=== PATIENT | male | born 2005 | race Caucasian/White ===

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

== ENCOUNTER 2025-01-12 09:32 | Emergency (ER) | payer OTHER, SELFPAY ==
[2025-01-12 09:38] VITALS: BP 129/77
[2025-01-12] MEDS: MOTRIN 600 MG TUBE (09:45)
[2025-01-12] MEDS: NSS 1000 IV ×2 (10:34→12:24)
[2025-01-12] MEDS: DECADRON 10 MG IV (10:34)
--- NOTE | 2025-01-12 10:35 | ED.GENMED ---
History of Present Illness
General
Chief Complaint: Fever
Source: patient and family (mom at bedside)
Exam Limitations: none
Time Seen by Provider: 01/12/25 10:12
Nursing documentation reviewed up to this point in time: agreed with
History of Present Illness
History of Present Illness:
The patient is a 19-year-old male presenting with a sore throat that began 3 days ago. The patient is currently on day three of a course of Azithromycin (Z-pack) prescribed by Dr. Patterson three days ago. Despite this treatment, the patient continues
to experience symptoms. The patient reports ear discomfort, described as feeling 'clogged,' and dizziness, but denies nausea, vomiting, or diarrhea. He has swollen lymph nodes. A throat culture was not performed prior to this visit.
Temp 101.9 Ibuprofen given in Triage
Past History
Past History
ED Past Medical History: None
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
Social History
Tobacco: Non-smoker
Alcohol: None
Personal: Single
Living: with family
Employment: Employed
Review of Systems
Review of Systems
Allergies reviewed?: Yes
All Other Systems: ROS reviewed and negative except as documented in HPI and ROS
Constitutional: Reports fever
EENT: Reports sore throat (Significant lymphadenopathy)
ABD/GI: Denies abdominal pain, nausea, vomiting or diarrhea
Musculoskeletal: Denies joint pain
Skin: Reports no symptoms
Neurological: Reports dizzy; Denies headache
Phy Exam
Physical Exam
Physical Exam:
GENERAL: No acute distress. A&Ox3.
CONSTITUTIONAL: Afebrile.
EYES: clear, conjunctivae normal
Neck: Significant bilateral post auricular, cervical lymphadenopathy
ENMT: moist mucus membranes, Pharynx with significantly swollen (not touching), red tonsils with mild exudate, able to swallow with mild difficulty, some gagging, and hot potato voice. TMs normal
RESPIRATORY: Regular respirations, nonlabored, lungs clear.
CARDIOVASCULAR: Regular rate and rhythm, no murmurs, no rubs.
GI: Soft, nontender, normal BS
MUSCULOSKELETAL: Moves with ease. Well perfused.
SKIN: Warm, dry, pink
PSYCH: Normal mood and affect. Well kept, interactive and appropriate
NEUROLOGIC: Awake, alert and oriented. No focal neurological deficits
Course
Orders/Labs/Results
Orders:
Orders
01/12/25 09:40
Ibuprofen [Motrin] 600 mg .ROUTE .STK-MED ONE
01/12/25 09:44
Ibuprofen [Motrin] 600 mg TUBE NOW STA
01/12/25 10:18
0.9% Sodium Chloride 1000 ml [Nss] 1,000 ml IV BOLUS
Dexamethasone Sod Phosphate [Decadron] 10 mg IV NOW STA
01/12/25 10:22
Complete Blood Count/With Diff Urgent
Comprehensive Metabolic Panel Urgent
Monotest Urgent
01/12/25 12:09
Rapid Strep Group A Urgent
SHAWN Source: Throat/Pharynx
Specimen Description:
Date Specimen was Collected: 01/12/25
Time Specimen was Collected: 12:08
Throat Culture [Throat Culture, Comprehensive] Urgent
SHAWN Source: Throat/Pharynx
Specimen Description:
Date Specimen was Collected: 01/12/25
Time Specimen was Collected: 12:08
01/12/25 12:19
0.9% Sodium Chloride 1000 ml [Nss] 1,000 ml IV BOLUS
Abnormal Lab Results
01/12/25
10:22
WBC 14.3 H 10^3/uL
(4.8-10.8)
Absolute Lymphs (auto) 9.8 H 10^3/uL
(1.2-3.4)
Neutrophils % 26.3 L %
(42.2-75.2)
Lymphocytes % 68.6 H %
(20.5-51.1)
Glucose 132 H mg/dl
(70-99)
AST 127 H U/L
(17-59)
ALT 169 H U/L
(0-50)
Alkaline Phosphatase 141 H U/L
(38-126)
Monoscreen Positive A
(Negative)
01/12/25 10:22
01/12/25 10:22
Vital Signs
Initial and Last Documented VS:
Initial Vital Signs
Temp Pulse Resp BP Pulse Ox
101.7 F H 108 16 129/77 98
01/12/25 09:38 01/12/25 09:38 01/12/25 09:38 01/12/25 09:38 01/12/25 09:38
Last Documented Vital Signs
Temp Pulse Resp BP Pulse Ox
99.7 F 88 16 129/77 98
01/12/25 13:13 01/12/25 13:13 01/12/25 09:38 01/12/25 09:38 01/12/25 10:43
MDM/Problems Addressed
Differential Diagnosis Includes:
Viral versus bacterial pharyngitis, infectious mono, peritonsillar abscess, tonsillitis
MDM/Problems Addressed:
The patient is a 19-year-old male presenting with a sore throat that began 3 days ago. The patient is currently on day three of a course of Azithromycin (Z-pack) prescribed by Dr. Patterson three days ago. Despite this treatment, the patient continues
to experience symptoms. The patient reports ear discomfort, described as feeling 'clogged,' and dizziness, but denies nausea, vomiting, or diarrhea. He has swollen lymph nodes. A throat culture was not performed prior to this visit.
Temp 101.9 Ibuprofen given in Triage
No visible or palpable abscess.
Plan:
- Perform a throat culture.
- Test for infectious mononucleosis with a blood test.
- Administer intravenous fluids.
- Administer a steroid to reduce swelling.
- Provide analgesics for pain relief.
12:00 PM:
CBC: Leukocytosis with elevated lymphs consistent with mononucleosis
CMP: Mild transaminitis consistent with viral illness
Monotest is positive
Rapid strep neg
Throat culture pending.
Lengthy discussion with pt and mom re mono, possible complications, all questions answered.
Temp 99.6 HR 88
Pt states his throat feeling 'so much better,' swallowing well. Speaking well.
Stable for discharge
He wants to finish the next 2 days of his Zithromax
*Pulse Oximetry
SaO2: 98
Oxygen Mode of Delivery: Room air
Patient hypoxic: no
*Critical Care Note
Total Time (30-74mins, 75-104mins- exclusive of procedures): Not Applicable
ED Attending Note
-
Portions of this chart may have been created with voice recognition software.� Occasional wrong word or��sound alike� substitutions may have occurred due to the inherent limitations of voice recognition software.
Discharge Plan
Departure
Patient Disposition: Home (Routine Discharge)
Date of Disposition: 01/12/25
Time of Disposition: 13:11
Patient with high blood pressure during this ER visit?: No
Condition: Good
Discharge Problem:
Mononucleosis
Instructions: Fever, Adult (DC), Mononucleosis
Prescriptions:
No Action
sulfamethoxazole-trimethoprim [Bactrim DS] 800-160 mg tablet
1 tab PO BID 3 Days Qty: 6 0RF
Referrals:
Chip Patterson, DO [Family Provider, Family Practice] - As needed
Stand Alone Forms: Return to Work
Activity Restrictions/Additional Instructions:
As we discussed, return here immediately for difficulty swallowing, speaking, for repeated vomiting, for fever above 100.5 that is unrelieved with ibuprofen, or feeling sicker in any way
Since your liver enzymes are mildly elevated, hold off on Tylenol, only take ibuprofen, 600 mg every 6 hours as needed for throat pain or fever.
Drink plenty of fluids.
No work for one week.
Interventions
Interventions:
*Risk Screen - Suicide Last Done: 01/12/25 09:38
*General Assessment Last Done: 01/12/25 12:46
*Neglect/Abuse Screening Last Done: 01/12/25 09:38
*ED- Fall Risk Assessment Last Done: 01/12/25 12:46
*ED COVID-19 Vaccine History Last Done: 01/12/25 12:46
*Nursing Disposition Last Done: 01/12/25 13:42
ED- Neurological Assessment Last Done: 01/12/25 12:46
ED-Skin Assessment Last Done: 01/12/25 12:46
Discharge Date and Time
Discharge Date/Time: 01/12/25 13:43
Print Language: [place]
[2025-01-12 10:53] LABS: ALT (SGPT) 169 U/L (0-50); AST (SGOT) 127 U/L (17-59); Albumin 4.3 g/dl (3.5-5.0); Alkaline Phosphatase 141 U/L (38-126); Blood Urea Nitrogen 13 mg/dl (9-20); Calcium 9.1 mg/dl (8.4-10.2); Carbon Dioxide 28 mmol/L (22-30); Chloride 103 mmol/L (98-107); Glucose 132 mg/dl (70-99); Potassium 3.8 mmol/L (3.5-5.1); Sodium 136 mmol/L (135-145); Total Protein 7.5 g/dl (6.3-8.2); eGFR > 60.00
[2025-01-12 10:56] LABS: Hematocrit 42.6 % (39.0-52.0); Hemoglobin 14.9 g/dL (13.0-18.0); Mean Corp Hgb Conc. 35.0 g/dL (33.0-37.0); Mean Corpuscular Volume 81.6 fL (80.0-94.0); Nucleated Red Blood Cells % 0 % (-); Red Cell Dist. Width 13.2 % (11.5-14.5)
[2025-01-12 10:57] LABS: Platelet Count 188 10^3/uL (130-400)
== END 2025-01-12 13:43 | disposition home or self-care (01) ==
LOC: EMR 09:32
PROVIDERS: Registered Nurse; EMERGENCY PHYSICIAN Emergency Medicine; FAMILY PHYSICIAN Family Medicine
DX: B27.90 Infectious mononucleosis, unspecified without complication (principal); R42 Dizziness and giddiness; R59.0 Localized enlarged lymph nodes; Z90.5 Acquired absence of kidney; Z91.040 Latex allergy status
CPT/HCPCS: 99284; 96374; 96361 ×2; 80053; 85025; 86308; 87070; 87147; 87880

== ENCOUNTER 2025-01-13 14:03 | Emergency (ER) | payer OTHER, SELFPAY ==
[2025-01-13 14:14] VITALS: BP 99/63
--- NOTE | 2025-01-13 16:01 | ED.GENMED ---
History of Present Illness
General
Chief Complaint: Throat Problem
Source: patient and family
Time Seen by Provider: 01/13/25 15:08
History of Present Illness
History of Present Illness:
19-year-old male presents to the emergency room complaining of sore throat, difficulty swallowing, malaise. Patient was diagnosed with mononucleosis here at this emergency room yesterday. He was treated with IV fluids, oral Motrin and a dose of
Decadron. He felt better when he left but through the course of the night his symptoms seem to 'rebound'. Patient states subjectively feels like he has trouble breathing in the morning because there is a tightness around his throat. He has pain
when he swallows liquids more so in the morning. Currently he is tolerating oral intake.
Past History
Past History
ED Past Medical History: None
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
Social History
Tobacco: Non-smoker
Alcohol: None
Personal: Single
Living: with family
Employment: Employed
Phy Exam
Physical Exam
Physical Exam:
General: Awake, Alert, Oriented X3. No acute distress but patient appears somewhat uncomfortable
Vitals: unremarkable
Head: Atraumatic
Eyes: Pupils equal, EOMI
Throat: Airway intact, some tonsillar enlargement but tonsils are not kissing, no stridor
Neck: Trachea midline, no significant lymphadenopathy
Lungs: Clear and equal b/l
Heart: Regular rate, no murmurs
Abd: Soft, Nontender, No pulsatile mass=
Neuro: Nonfocal
Skin: Warm, dry, no rash
Extremities: pulses equal b/l, no edema
Course
Orders/Labs/Results
Orders:
Orders
01/13/25 16:00
0.9% Sodium Chloride 1000 ml [Nss] 1,000 ml IV BOLUS
Ketorolac [Toradol] 15 mg IV NOW STA
01/13/25 16:01
Dexamethasone Sod Phosphate [Decadron] 6 mg IV NOW STA
Vital Signs
Initial and Last Documented VS:
Initial Vital Signs
Temp Pulse Resp BP Pulse Ox
99.1 F 91 18 99/63 98
01/13/25 14:14 01/13/25 14:14 01/13/25 14:14 01/13/25 14:14 01/13/25 14:14
Last Documented Vital Signs
Temp Pulse Resp BP Pulse Ox
99.1 F 91 18 99/63 98
01/13/25 14:14 01/13/25 14:14 01/13/25 14:14 01/13/25 14:14 01/13/25 16:03
MDM/Problems Addressed
Differential Diagnosis Includes:
Mononucleosis, viral syndrome
MDM/Problems Addressed:
Patient develops a sore throat was seen in the emergency room yesterday. Diagnosed with mononucleosis. He was feeling better but symptoms worsened again. Patient given another dose of Decadron. He is feeling somewhat better again. Will
discharge him home with a prescription for prednisone for the next few days.
*Pulse Oximetry
SaO2: 98
Oxygen Mode of Delivery: Room air
Patient hypoxic: no
*Critical Care Note
Total Time (30-74mins, 75-104mins- exclusive of procedures): Not Applicable
ED Attending Note
-
Portions of this chart may have been created with voice recognition software.� Occasional wrong word or��sound alike� substitutions may have occurred due to the inherent limitations of voice recognition software.
Discharge Plan
Departure
Patient Disposition: Home (Routine Discharge)
Date of Disposition: 01/13/25
Time of Disposition: 17:36
Patient with high blood pressure during this ER visit?: No
Discharge Problem:
Acute pharyngitis due to infectious mononucleosis
Instructions: Mononucleosis (DC)
Prescriptions:
New
prednisone 10 mg tablet
10 mg PO DIRECTED Qty: 20 0RF
Rx Instructions:
4 tabs x 2 days, then 3 tabs x 2 days, then 2 tabs x 2 days, then 1 tab
No Action
sulfamethoxazole-trimethoprim [Bactrim DS] 800-160 mg tablet
1 tab PO BID 3 Days Qty: 6 0RF
Referrals:
Chip Patterson DO [Family Provider, Family Practice]
Interventions
Interventions:
*Risk Screen - Suicide Last Done: 01/13/25 14:14
*General Assessment Last Done: 01/13/25 14:14
*Neglect/Abuse Screening Last Done: 01/13/25 14:14
*Nursing Disposition Last Done: 01/13/25 17:53
ED-EENT Assessment Last Done: 01/13/25 15:37
ED- Pulmonary Assessment Last Done: 01/13/25 15:37
Discharge Date and Time
Discharge Date/Time: 01/13/25 17:53
Print Language: MALIAN
[2025-01-13] MEDS: NSS 1000 IV (16:23)
[2025-01-13 16:29] LABS: Glucose - Point of Care 84 mg/dl (70-99)
[2025-01-13] MEDS: DECADRON 6 MG IV (16:30)
== END 2025-01-13 17:53 | disposition home or self-care (01) ==
LOC: EMR 14:03
PROVIDERS: EMERGENCY PHYSICIAN Emergency Medicine; FAMILY PHYSICIAN Family Medicine
DX: J02.8 Acute pharyngitis due to other specified organisms (principal); B27.90 Infectious mononucleosis, unspecified without complication; R13.10 Dysphagia, unspecified; J35.1 Hypertrophy of tonsils; Z90.5 Acquired absence of kidney; Z91.040 Latex allergy status
CPT/HCPCS: 99284; 96374; 96361; 82962